=== PATIENT | female | born 1975 | race Caucasian/White ===

== ENCOUNTER 2021-07-29 08:45 | Day surgery (SDC) | payer OTHER ==
[2021-07-29 10:11] VITALS: RESP 18
[2021-07-29 10:48] VITALS: BP 112/75; PULSE 75
--- NOTE | 2021-07-29 12:06 | US ---
EXAMINATION TYPE: US FNA first lesion DATE OF EXAM: 07/29/2021 COMPARISON: NONE HISTORY: Thyroid nodule. Maximal barrier technique was utilized. After informed consent, skin overlying the left lobe thyroid nodule at the upper pole was localized with ultrasound and the overlying skin prepped and draped. Ul trasound was utilized using sterile technique. Lidocaine was used for local anesthesia. Five passes with a 25-gauge needle were made into the left lobe thyroid nodule and aspirated specimen was submitt ed to cytology. Following the procedure hemostasis achieved. No immediate complication. The patien t discharged in stable condition. IMPRESSION: STATUS POST ULTRASOUND GUIDED FINE NEEDLE ASPIRATION OF LEFT LOBE THYROID THYROID NODULE, PATHOLOGY IS PENDING. THIS PROCEDURE WAS PERFORMED BY THE UNDERSIGNED.
== END 2021-07-29 11:05 | disposition home or self-care (01) ==
LOC: RADPROMAIN 08:45
PROVIDERS: ATTEND Internal Medicine Endocrinology, Diabetes & Metabolism
DX: E04.1 Nontoxic single thyroid nodule (principal); I10 Essential (primary) hypertension; Z83.49 Family history of other endocrine, nutritional and metabolic diseases; Z77.123 Contact with and (suspected) exposure to radon and other naturally occurring radiation; Z82.49 Family history of ischemic heart disease and other diseases of the circulatory system; Z86.73 Personal history of transient ischemic attack (TIA), and cerebral infarction without residual deficits; Z79.1 Long term (current) use of non-steroidal anti-inflammatories (NSAID); Z79.899 Other long term (current) drug therapy; Z88.0 Allergy status to penicillin
CPT/HCPCS: 10005; 88173; 88305

== ENCOUNTER 2022-06-14 13:36 | Emergency (ER) | payer OTHER ==
[2022-06-14] MEDS ORDERED: SODIUM CHLORIDE 0.9% 1,000 ML IV STA (15:48)
[2022-06-14 16:19] LABS: Basophils % (A) 0 %; Eosinophils # (A) 0.1 k/uL (0-0.7); Eosinophils % (A) 0 %; HCT 44.8 % (34.0-46.0); Lymphocytes # (A) 1.5 k/uL (1.0-4.8); Lymphocytes % (A) 9 %; MCH 31.5 pg (25.0-35.0); MCHC 35.7 g/dL (31.0-37.0); MCV 88.2 fL (80.0-100.0); Mean Platelet Volume 7.6; Monocytes # (A) 0.8 k/uL (0-1.0); Monocytes % (A) 5 %; Neutrophils # (A) 15.1 k/uL (1.3-7.7); Neutrophils % (A) 85 %; Platelet Count 280 k/uL (150-450); RBC 5.08 m/uL (3.80-5.40); RDW 14.3 % (11.5-15.5); WBC 17.7 k/uL (3.8-10.6)
[2022-06-14 16:33] LABS: ALT 25 U/L (4-34); AST 25 U/L (14-36); African American GFR (CKD) >90 (>60 ml/min/1.73 sqM); Albumin 4.8 g/dL (3.5-5.0); Alkaline Phosphatase 82 U/L (38-126); Anion Gap 12 mmol/L; Blood Urea Nitrogen 16 mg/dL (7-17); Calcium 9.3 mg/dL (8.4-10.2); Carbon Dioxide 27 mmol/L (22-30); Chloride 101 mmol/L (98-107); Glucose 115 mg/dL (74-99); Magnesium 1.8 mg/dL (1.6-2.3); Non-African American GFR(CKD) >90 (>60 ml/min/1.73 sqM); Potassium 3.5 mmol/L (3.5-5.1); Sodium 140 mmol/L (137-145); Total Bilirubin 0.8 mg/dL (0.2-1.3)
[2022-06-14 16:37] LABS: Partial Thromboplastin Time 24.5 sec (22.0-30.0); Prothrombin Time 10.6 sec (9.0-12.0)
--- NOTE | 2022-06-14 16:42 | CT ---
EXAMINATION TYPE: CT abdomen pelvis w con CT DLP: 897.9 mGycm, Automated exposure control for dose reduction was used. DATE OF EXAM: 06/14/2022 4:24 PM COMPARISON: None. CLINICAL INDICATION:Female, 46 years old with history of rectal bleeding, lower abd pain; abdominal p ain, bloody stool TECHNIQUE: Axial CT of the abdomen and pelvis. Sagittal and coronal reformats were created on a [employer] workstation. Contrast used:100 mL of Isovue 300 with IV Contrast, Oral contrast used: without Oral Contrast FINDINGS: LOWER CHEST: Unremarkable r ABDOMEN LIVER: Diffusely hypoattenuating parenchyma. GALLBLADDER AND BILE DUCTS: Unremarkable. PANCREAS: 2 hypodense lesions in the pancreatic tail measuring up to 11 mm. SPLEEN: Unremarkable. ADRENAL GLANDS: Unremarkable. KIDNEYS AND URETERS: No evidence of hydronephrosis or renal calculus. The ureters are unremarkable. PELVIS BLADDER: Unremarkable REPRODUCTIVE: Unremarkable. ABDOMEN & PELVIS STOMACH AND BOWEL: No evidence of bowel obstruction. There is circumferential wall thickening of the descending and sigmoid measuring up to 10 mm. No evidence of free air or organizing fluid collection. There is vasogenic edema within the mesentery. Few scattered clonic diverticula are present PERITONEUM: No evidence of pneumoperitoneum or free fluid. VASCULATURE: No evidence of aortic aneurysm. MUSCULOSKELETAL: No acute osseous abnormalities LYMPH NODES: No gross evidence for lymphadenopathy. SOFT TISSUE/ABDOMINAL WALL: Unremarkable IMPRESSION: 1. Colitis involving the descending and sigmoid colon. 2. Hepatic steatosis. 3. Cystic lesions within the pancreatic tail which are suboptimally characterized. MRI with MRCP is recommended for further evaluation with IV contrast.
--- NOTE | 2022-06-14 16:45 | ED ---
General Adult HPI - General Chief complaint: GI Bleed Stated complaint: GI bleed Time Seen by Provider: 06/14/22 15:11 Source: patient Mode of arrival: ambulatory Limitations: no limitations - History of Present Illness Initial comments: Patient is a 46-year-old female presenting with chief complaint of rectal bleeding. Patient states that yesterday she noticed dark red blood in her stool multiple times. She does admit to some slight abdominal discomfort in the bilateral lower quadrants. Patient had one episode of vomiting yesterday, however she states that she had a few alcoholic drinks and believes it was due to this. No blood thinners. No lightheadedness, chest pain, shortness of breath, palpitations, dizziness. Surgical history includes total hysterectomy performed in February. - Related Data Home Medications Medication Instructions Recorded Confirmed Aspirin [Adult Low Dose Aspirin EC] 81 mg PO DAILY 07/24/21 07/29/21 amLODIPine [Norvasc] 10 mg PO DAILY 07/24/21 07/29/21 carvediloL [Coreg] 12.5 mg PO BID 07/24/21 07/29/21 hydrALAZINE HCL 25 mg PO BID 07/24/21 07/29/21 Previous Rx's Medication Instructions Recorded Ciprofloxacin HCl [Cipro] 500 mg PO BID 10 Days #20 tab 06/14/22 metroNIDAZOLE 500 mg PO TID 10 Days #30 tablet 06/14/22 Allergies Allergy/AdvReac Type Severity Reaction Status Date / Time amoxicillin Allergy Rash/Hives Verified 06/14/22 13:53 Review of Systems ROS Statement: Those systems with pertinent positive or pertinent negative responses have been documented in the HPI. ROS Other: All systems not noted in ROS Statement are negative. Past Medical History Past Medical History: CVA/TIA, Hypertension, Thyroid Disorder History of Any Multi-Drug Resistant Organisms: None Reported Past Surgical History: Hysterectomy, Orthopedic Surgery Additional Past Surgical History / Comment(s): Rt ankle surgery and hardware removed. left wrist surgery, oral surgery, ganglion cyst removal both wrist. Past Anesthesia/Blood Transfusion Reactions: No Reported Reaction Past Psychological History: No Psychological Hx Reported Smoking Status: Never smoker Past Alcohol Use History: Occasional Past Drug Use History: None Reported - Past Family History Mother Family Medical History: No Reported History General Exam Limitations: no limitations General appearance: alert, in no apparent distress Head exam: Present: atraumatic, normocephalic, normal inspection Eye exam: Present: normal appearance Neck exam: Present: normal inspection, full ROM Respiratory exam: Present: normal lung sounds bilaterally. Absent: respiratory distress, wheezes, rales, rhonchi, stridor Cardiovascular Exam: Present: regular rate, normal rhythm, normal heart sounds. Absent: systolic murmur, diastolic murmur, rubs, gallop, clicks GI/Abdominal exam: Present: soft. Absent: distended, tenderness, guarding, rebound, rigid Rectal exam: Present: normal rectal tone, hemorrhoids Neurological exam: Present: alert, oriented X3, CN II-XII intact Psychiatric exam: Present: normal affect, normal mood Skin exam: Present: warm, dry, intact, normal color. Absent: rash Course Vital Signs 06/14/22 06/14/22 13:52 17:27 Temperature 98 F 98.7 F Pulse Rate 78 72 Respiratory 16 18 Rate Blood Pressure 139/96 132/78 O2 Sat by Pulse 98 98 Oximetry Medical Decision Making - Medical Decision Making Patient is a 46-year-old female presenting with chief complaint of rectal bleeding. Symptoms started yesterday. She also admits to some bilateral lower quadrant discomfort. On physical examination abdomen is soft, nontender, nondistended. No gross noted on rectal examination, normal rectal tone. WBC 17.7 hemoglobin 16.0. Coags are WNL. Stool call is positive. CMP shows glucose 1:15, otherwise unremarkable. CT of the abdomen and pelvis with contrast shows colitis involving the descending and sigmoid colon. There are cystic lesions within the pancreatic tail which are suboptimally characterized, MRI with MRCP is recommended for further evaluation. Patient is educated on these findings, she started on metronidazole and ciprofloxacin for colitis. She is informed of pancreatic cysts noted on CT and instructed to follow up with GI for MRCP, provided referral for Dr. Gomez. Follow-up with PCP. Report back to ER with any new or worsening symptoms. Discussed return parameters and answered all questions. Patient conveyed verbal understanding and agreed to the plan. I discussed this case in detail with my attending Dr. Zacarias - Lab Data Result diagrams: 06/14/22 16:03 06/14/22 16:03 Lab Results 06/14/22 06/14/22 06/14/22 Range/Units 16:03 16:03 16:03 WBC 17.7 H (3.8-10.6) k/uL RBC 5.08 (3.80-5.40) m/uL Hgb 16.0 (11.4-16.0) gm/dL Hct 44.8 (34.0-46.0) % MCV 88.2 (80.0-100.0) fL MCH 31.5 (25.0-35.0) pg MCHC 35.7 (31.0-37.0) g/dL RDW 14.3 (11.5-15.5) % Plt Count 280 (150-450) k/uL MPV 7.6 Neutrophils % 85 % Lymphocytes % 9 % Monocytes % 5 % Eosinophils % 0 % Basophils % 0 % Neutrophils # 15.1 H (1.3-7.7) k/uL Lymphocytes # 1.5 (1.0-4.8) k/uL Monocytes # 0.8 (0-1.0) k/uL Eosinophils # 0.1 (0-0.7) k/uL Basophils # 0.0 (0-0.2) k/uL PT 10.6 (9.0-12.0) sec INR 1.0 (<1.2) APTT 24.5 (22.0-30.0) sec Sodium (137-145) mmol/L Potassium (3.5-5.1) mmol/L Chloride (98-107) mmol/L Carbon Dioxide (22-30) mmol/L Anion Gap mmol/L BUN (7-17) mg/dL Creatinine (0.52-1.04) mg/dL Est GFR (CKD-EPI)AfAm (>60 ml/min/1.73 sqM) Est GFR (CKD-EPI)NonAf (>60 ml/min/1.73 sqM) Glucose (74-99) mg/dL Plasma Lactic Acid Taz (0.7-2.0) mmol/L Calcium (8.4-10.2) mg/dL Magnesium (1.6-2.3) mg/dL Total Bilirubin (0.2-1.3) mg/dL AST (14-36) U/L ALT (4-34) U/L Alkaline Phosphatase (38-126) U/L Total Protein (6.3-8.2) g/dL Albumin (3.5-5.0) g/dL Stool Occult Blood Positive H (Negative) 06/14/22 06/14/22 Range/Units 16:03 16:03 WBC (3.8-10.6) k/uL RBC (3.80-5.40) m/uL Hgb (11.4-16.0) gm/dL Hct (34.0-46.0) % MCV (80.0-100.0) fL MCH (25.0-35.0) pg MCHC (31.0-37.0) g/dL RDW (11.5-15.5) % Plt Count (150-450) k/uL MPV Neutrophils % % Lymphocytes % % Monocytes % % Eosinophils % % Basophils % % Neutrophils # (1.3-7.7) k/uL Lymphocytes # (1.0-4.8) k/uL Monocytes # (0-1.0) k/uL Eosinophils # (0-0.7) k/uL Basophils # (0-0.2) k/uL PT (9.0-12.0) sec INR (<1.2) APTT (22.0-30.0) sec Sodium 140 (137-145) mmol/L Potassium 3.5 (3.5-5.1) mmol/L Chloride 101 (98-107) mmol/L Carbon Dioxide 27 (22-30) mmol/L Anion Gap 12 mmol/L BUN 16 (7-17) mg/dL Creatinine 0.57 (0.52-1.04) mg/dL Est GFR (CKD-EPI)AfAm >90 (>60 ml/min/1.73 sqM) Est GFR (CKD-EPI)NonAf >90 (>60 ml/min/1.73 sqM) Glucose 115 H (74-99) mg/dL Plasma Lactic Acid Taz 1.8 (0.7-2.0) mmol/L Calcium 9.3 (8.4-10.2) mg/dL Magnesium 1.8 (1.6-2.3) mg/dL Total Bilirubin 0.8 (0.2-1.3) mg/dL AST 25 (14-36) U/L ALT 25 (4-34) U/L Alkaline Phosphatase 82 (38-126) U/L Total Protein 8.0 (6.3-8.2) g/dL Albumin 4.8 (3.5-5.0) g/dL Stool Occult Blood (Negative) Disposition Clinical Impression: Colitis Disposition: HOME SELF-CARE Condition: Good Instructions (If sedation given, give patient instructions): Gastrointestinal Bleeding (ED), Colitis (ED) Additional Instructions: Follow-up with PCP and GI regarding colitis and pancreatic cysts. Report back to ER with any new or worsening symptoms. Take medication as prescribed. Prescriptions: Ciprofloxacin HCl [Cipro] 500 mg PO BID 10 Days #20 tab metroNIDAZOLE 500 mg PO TID 10 Days #30 tablet Is patient prescribed a controlled substance at d/c from ED?: No Referrals: Matty Zamarripa DO [Primary Care Provider] - 1-2 days Katherine Gomez MD [STAFF PHYSICIAN] - 1-2 days Time of Disposition: 17:10
[2022-06-14] MEDS ORDERED: CIPROFLOXACIN HCL 500 MG TAB PO STA (17:10)
[2022-06-14] MEDS ORDERED: metroNIDAZOLE 500 MG TAB PO STA (17:10)
[2022-06-14 17:28] VITALS: BP 132/78; PULSE 72; RESP 18; TEMP 98.7
== END 2022-06-14 17:27 | disposition home or self-care (01) ==
LOC: EC 13:36
DX: K52.9 Noninfective gastroenteritis and colitis, unspecified (principal); K76.0 Fatty (change of) liver, not elsewhere classified; I63.9 Cerebral infarction, unspecified; I10 Essential (primary) hypertension; Z88.0 Allergy status to penicillin; Z79.899 Other long term (current) drug therapy
CPT/HCPCS: 36415; 80053; 83605; 83735; 85025; 85610; 85730; 82272; 74177; 99285; 96360; Q9967